=== PATIENT | male | born 1995 | race African-American/Black ===

== ENCOUNTER 2019-03-27 13:03 | Emergency (ER) | payer MEDICAID ==
[~2019-03-27] VITALS: Ht 182.9 cm; Wt 68.0 kg
[2019-03-27] MEDS ORDERED: SODIUM CHLORIDE 0.9% 1,000 ML IV ONE (13:55)
[2019-03-27] MEDS ORDERED: ONDANSETRON HCL 4MG/2ML INJ IV ONE (14:00)
[2019-03-27 16:50] VITALS: BP 117/72
== END 2019-03-27 16:50 | disposition home or self-care (01) ==
LOC: ER 13:03
DX: T40.4X1A Poisoning by other synthetic narcotics, accidental (unintentional), initial encounter (principal); T40.1X1A Poisoning by heroin, accidental (unintentional), initial encounter; G92 Toxic encephalopathy; F15.10 Other stimulant abuse, uncomplicated; Y92.89 Other specified places as the place of occurrence of the external cause
CPT/HCPCS: 96374; 99283; J2405; J7030

== ENCOUNTER 2024-06-06 10:18 | Emergency (ER) | payer MEDICAID ==
[~2024-06-06] VITALS: Ht 170.2 cm; Wt 54.4 kg
[2024-06-06 10:21] VITALS: O2SAT 98
[2024-06-06 10:33] VITALS: BP 105/59; TEMP 36.8; O2SAT 100
[2024-06-06 11:08] VITALS: PULSE 88; RESP 18
[2024-06-06] MEDS ORDERED: ONDANSETRON 4MG ODT PO ONE (11:15)
== END 2024-06-06 11:29 | disposition left against medical advice (07) ==
LOC: ER 10:18
DX: R05.9 Cough, unspecified (principal); R11.0 Nausea; F15.10 Other stimulant abuse, uncomplicated
CPT/HCPCS: 99281; Q0162